=== PATIENT | male | born 1965 | race Caucasian/White ===

== ENCOUNTER → 2018-06-13 | Outpatient (CLI) | payer OTHER ==
[~2018-06-13] VITALS: Ht 172.7 cm; Wt 104.3 kg
[~2018-06-13] MED LIST: ACCUPRIL10 MG PO; ALTACE5 MG PO; AMBIEN 10 MG TA10 MG PO; ASPIR-LOW81 MG PO; BYSTOLIC 5 MG5 M1 PO; GLIPIZIDE XL5 MG PO; GLUCOTROL5 MG PO; HYDROCHLOROTHIA25 M2 PO; INVOKANA300 MG PO; JANUVIA50 MG PO; JARDIANCE25 MG PO; LIPITOR40 MG PO; LIPITOR80 MG PO; METFORMIN HCL500 MG PO; PLAVIX 75 MG TA75 M1 PO; VITAMIN D35000 UNIT PO; VITAMIN D50000 UNIT PO; VITAMIN E400 UNI6 PO; XANAX 0.5 MG0.5 MG PO; ZETIA10 MG PO
--- NOTE | ~2018-06-13 | P ---
[facility] [place] [address] PROCEDURE REPORT Name: LEESA RIOS [id number] Admission: 06/13/18 ������������������ Attend Phys: Yoshi Banda MD Discharge: ������������������ Date of : 61 Report #: [id number] THIS REPORT FOR: //name// CC: Yoshi Victoria BRIEF HISTORY: The patient is a 53-year-old male with a history of 3 colon polyps 5 years ago for a surveillance colonoscopy. PREOPERATIVE DIAGNOSIS: History of colon polyps. POSTOPERATIVE DIAGNOSIS: Colon polyp. MEDICATIONS: Deep sedation with propofol per Anesthesia. SPECIMEN: Proximal ascending colon polyp. ESTIMATED BLOOD LOSS: 3 mL. PROCEDURE: Colonoscopy to cecum and terminal ileum with biopsy. FINDINGS: Prior to propofol sedation, procedure of colonoscopy discussed with the patient as well as potential risks and its complications. He indicates he understands and desires to proceed. DESCRIPTION OF PROCEDURE: With the patient in left lateral decubitus position, digital examination was completed, which revealed no abnormalities. Subsequently, the Olympus video colonoscope was introduced in the rectum, advanced under direct vision to the cecum. Done with minimal difficulty. The cecum was identified by the ileocecal valve and the appendiceal orifice. I was able to visualize the distal segment of terminal ileum, which was inspected and noted to be unremarkable. At that point, the scope was slowly withdrawn and careful circumferential views obtained including retroflexion of the scope in the ascending colon. Upon slow withdrawal of the scope, the prep was good. The mucosa was within normal limits, normal vascular pattern, normal light reflex. As we withdrew the scope, he was noted to have a diminutive polyp in the proximal ascending colon which was removed with cold biopsy forceps. Scope was further withdrawn and no additional neoplastic lesions were seen. The mucosa of the remainder of the colon was within normal limits. The scope was withdrawn in the rectum. Upon retroflexion, no abnormalities were seen. Scope was withdrawn. The patient tolerated the procedure well. CONDITION OF THE PATIENT UPON DISCHARGE: Following procedure, the patient drowsy, aroused, conversant and will be discharged home when fully ambulatory. INSTRUCTIONS TO THE PATIENT AND FAMILY AT THE TIME OF DISCHARGE: We will follow [address] [address] PROCEDURE REPORT Name: LEESA RIOS [facility] [id number] Admission: 06/13/18 ������������������ Attend Phys: Yoshi Banda MD Discharge: ������������������ Date of : 61 Report #: [id number] up on the pathology of the polyp. If it is an adenoma, he should return in 5 years for followup. If it is hyperplastic, 10 years would be indicated. Last colonoscopy was 5 years ago. Withdrawal time to the cecum was 13 minutes and 52 seconds. ��������������������������������������������� ���������������������������������������� By: ��������������������������������������������� 0913 2123 Yoshi Banda MD /nt
--- NOTE | 2018-06-17 12:06 | PATH ---
[facility] [address] [place] [address] PATHOLOGY RPT PROCEDURE Name: PAULO MEDEROS ARIELLA Room #: REG CLI M.R.#: [id number] ������������������ Admission: 06/13/18 ������������������ Date of : 61 Discharge: Report #: [id number] Path Case #: [id number] [facility] Accession Number: [id number] . 01 Material submitted: . POLYP AT PROXIMAL ASCENDING COLON . 01 Clinical history: . Pre-OP DX: Hx polyps, hemorrhoids Post-OP DX: Colon polyp . 02 Diagnosis: Polyp, at ascending colon, endoscopic biopsy: - Tubular adenoma. - Negative for high-grade dysplasia. (IUV:pit 06/14/2018) QTP/06/14/2018 . 02 Electronically signed: . Mckenzie Bustos MD, Pathologist NPI- [id number] . 01 Gross description: . Received in formalin labeled "Paulo Mederos, polyp at proximal ascending colon," are 2 segments of klein soft tissue measuring 0.7 x 0.3 x 0.2 cm in aggregate dimensions and ranging from 0.3 to 0.4 cm in maximum dimension. The specimen is submitted entirely in cassette A1. (TSD; 06/13/2018) TOB/TOB . 02 Pathologist provided ICD-10: D12.2 . 02 CPT . 761456 Specimen Comment: A courtesy copy of this report has been sent to Specimen Comment: [phone], . Specimen Comment: Report sent to / DR ROBERTSON Specimen Comment: A duplicate report has been generated due to demographic updates. Performed at: 01 [place] [id number] [id number] MD Edgar Mazariegos MD Phone: [phone] Performed at: [address] [id number] [address] [address] PATHOLOGY RPT PROCEDURE Name: PAULO MEDEROS Room #: REG JASSI Chase#: [id number] ������������������ Admission: 06/13/18 ������������������ Date of : 61 Discharge: Report #: [id number] Path Case #: [id number] MD Mckenzie Bustos MD Phone: [phone]
== END | disposition home or self-care (01) ==
LOC: GI 06:14
DX: Z12.11 Encounter for screening for malignant neoplasm of colon (principal); Z86.010 Personal history of colon polyps; D12.2 Benign neoplasm of ascending colon; I10 Essential (primary) hypertension; E11.9 Type 2 diabetes mellitus without complications; E78.5 Hyperlipidemia, unspecified; M19.90 Unspecified osteoarthritis, unspecified site; Z95.5 Presence of coronary angioplasty implant and graft; Z98.890 Other specified postprocedural states; Z79.899 Other long term (current) drug therapy; Z87.891 Personal history of nicotine dependence; Z79.82 Long term (current) use of aspirin
CPT/HCPCS: 62110; 62900

== ENCOUNTER → 2018-09-16 | Outpatient (CLI) | payer OTHER ==
[~2018-09-16] VITALS: Ht 172.7 cm; Wt 104.3 kg
[~2018-09-16] MED LIST changes: +ALTACE10 MG PO; +AMBIEN 5 MG TABL5 M1 PO; +BYSTOLIC10 MG PO; +CRESTOR40 MG PO; +GLUCOPHAGE1000 MG PO
[2018-09-16 07:22] LABS: HEMOGLOBIN 13.1 gm/dL (14.0-18.0); MCH 31.1 pg (26.0-34.0); MCHC 32.8 g/dL (28.0-37.0); MCV 94.7 fL (80.0-100.0); RBC 4.23 mil/uL (4.50-6.00); RDW 13.1 % (10.5-14.5); WBC 4.6 thou/uL (4.0-11.0)
[2018-09-16 07:27] LABS: CALCIUM 9.3 mg/dL (8.5-10.1); CREATININE 1.2 mg/dL (0.7-1.3); POTASSIUM 5.1 mmol/L (3.5-5.1)
[2018-09-16 07:36] VITALS: BP 162/100
--- NOTE | 2018-09-16 17:18 | CATHLAB ---
[facility] [address] [place] [address] INVASIVE PROCEDURE REPORT Name: LEESA RIOS Room #: REG Salvatore#: [id number] ������������� Admission: 09/16/18 ������������� Attend Phys: Tristan Morales, Discharge: ��� ������������� ��� Date of : 61 Date of Service: 09/16/18 1717 �� Report #: [id number] �������� ��������������������������������������������[id number] THIS REPORT FOR: //name// APPROVED REPORT Study performed: 09/16/2018 07:24:01 Patient Details Patient Status: Out-Patient Room #: The patient is a 53 year-old male Event Personnel Tristan Morales Information Assurance Engineer, Praveen Suresh RN RN, Kristina Pagan RTR, Jamin Byers Roberta Monitor, Nusrat Collins RN interactive developer Performed Art Access - R femoral artery* Left Heart Cath w/or w/o Coronaries [id number] [facility] Abdominal Aortography 990439 39404 Initial Mod Sed Same Phys/QHP Gr5y 682775 45732 Mod Sed Same Phys/QHP Ea 619843 Hemostasis w/ Mynx Indication Chest pain Procedure Narrative The Right Groin^ was infiltrated with subcutaneous anesthesia. A PINNACLE 6FR Sheath #[id number] sheath was inserted into the RFA^. Coronary angiography was performed using coronary diagnostic catheters. The right coronary system was accessed and visualized with a JR4 catheter. The left coronary system was accessed and visualized with a JL4 catheter. The left ventricle was accessed and visualized with a ST.PIG catheter. Left ventricular/Aortic Valve gradient assessed . Left ventriculogram was performed in 30 degree projection. An aortogram of the abdominal aorta was performed. Closure device was deployed with a Fr 6F/7F MYNX CLOSURE DEVICE. There was no hematoma. Intraoperative Conscious Sedation Sedation start time: 846 Case end Time: 919 Fentanyl 50 mcg Versed 1 mg Fluoro Time: 1.60 minutes Dose: DAP 5011.70 cGycm2 548 mGy [facility] [address] [place] [address] INVASIVE PROCEDURE REPORT Name: LEESA RIOS Room #: [id number] ������������� Admission: 09/16/18 ������������� Attend Phys: Tristan Morales, Discharge: ��� ������������� ��� Date of : 61 Date of Service: 09/16/18 1717 �� Report #: [id number] �������� ��������������������������������������������[id number] Contrast Type and Amount: Omnipaque 120 ml Hemodynamics The aortic pressure is 164/86 mmHg with a mean of 117 mmHg. The left ventricular pressure is 154/13 mmHg with a mean of mmHg. The left ventricular end diastolic pressure is 35 mmHg. Conclusion #1 normal left ventricular size and subtle inferior basilar hypokinesis EF is normal 55-60% #2 abdominal aortogram revealing no evidence of aneurysm widely patent renal and iliac system. #3 the left main has a at least a 70% distal eccentric lesion giving rise to the LAD and circumflex which also collaterally filling until the RCA PDA system which is occluded #4 the LAD is moderately calcified proximally with eccentric disease 30 and 40% well preserved distal half of this vessel was wraps the apex. #5 circumflex OM is nondominant but moderate distribution no occlusive disease is noted. #6 the dominant right is occluded proximally. It is well filled from left system the PDA and DIONE. 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 Recommendations plan: There has been progression of this distal left main lesion. Patient is minimally symptomatic but abnormal stress testing. Complete revascularization preferably with arterial grafts would be recommended and could be performed with revascularization by bypass. Dr. Roca to evaluate for this. Continue home medications. No heavy exertional activity until we proceed on with revascularization. ��������������������������������������������� <ELECTRONICALLY SIGNED> ���������������������������������������� By: Tristan Morales MD, FACC ��������������������������������������������� 09/16/181716 16 16 Tristan Morales MD, FACC /INF
--- NOTE | 2018-09-17 07:29 | EKG ---
[place] [address] [email or web address] [address] ELECTROCARDIOGRAM REPORT Name: LEESA RIOS Room #: REG CLI [facility]#: [id number] ������������������ Admission: 09/16/18 ������������������ Attend Phys: Tristan Morales MD, Discharge: ������������������ Date of : 61 Report #: [id number] ����������������������������������������������������������������� [id number] THIS REPORT FOR: //name// [facility] Test Date: 2018-09-16 Test Time: 07:20:44 Pat Name: LEESA RIOS Department: Room: Gender: M Senior Product Consultant: Ti SUN : 1965 Requested By: Tristan Morales Order Number: [id number] MD: Javier Dennison Measurements Intervals [place] Rate: 69 P: 63 AL: 199 QRS: 28 QRSD: 100 T: -20 QT: 395 QTc: 423 Interpretive Statements Sinus rhythm Multiform ventricular premature complexes Nonspecific T abnormalities, inferior leads Compared to ECG 12/20/2015 07:10:07 No significant change was found Electronically Signed On 09-17-2018 7:29:24 CDT by Javier Dennison [email or web address] ��������������������������������������������� <ELECTRONICALLY SIGNED> ���������������������������������������� By: Javier Dennison MD, [facility] ��������������������������������������������� 09/17/18 0729 9 9 Javier Dennison MD, [facility] /EPI
== END | disposition home or self-care (01) ==
LOC: CATH 06:46
PROVIDERS: Internal Medicine Cardiovascular Disease
DX: I25.10 Atherosclerotic heart disease of native coronary artery without angina pectoris (principal); I10 Essential (primary) hypertension; E11.9 Type 2 diabetes mellitus without complications; E78.5 Hyperlipidemia, unspecified; K21.9 Gastro-esophageal reflux disease without esophagitis; M19.90 Unspecified osteoarthritis, unspecified site; I42.9 Cardiomyopathy, unspecified; Z98.890 Other specified postprocedural states; Z79.899 Other long term (current) drug therapy; Z87.891 Personal history of nicotine dependence; Z82.49 Family history of ischemic heart disease and other diseases of the circulatory system; Z79.82 Long term (current) use of aspirin

== ENCOUNTER → 2018-09-19 | Outpatient (CLI) | payer OTHER | LOC: ULTRA 09:31 | DX: Z01.810 Encounter for preprocedural cardiovascular examination (principal); I25.10 Atherosclerotic heart disease of native coronary artery without angina pectoris ==

== ENCOUNTER 2018-09-26 06:27 | Inpatient (IN) | payer OTHER ==
[2018-09-19 10:39] LABS: URINE BILIRUBIN NEGATIVE (Negative); URINE BLOOD TRACE (Negative); URINE CLARITY CLEAR; URINE COLOR YELLOW; URINE GLUCOSE-RANDOM* 3+ (Negative); URINE KETONES NEGATIVE (Negative); URINE LEUKOCYTES-REFLEX NEGATIVE (Negative); URINE NITRITE-REFLEX NEGATIVE (Negative); URINE PROTEIN (DIPSTICK) 2+ (Negative); URINE UROBILINOGEN 0.2 E.U./dl (0.2-1.0)
[2018-09-19 10:40] LABS: ABSOLUTE NEUTROPHILS 2.7 thou/uL (1.4-8.2); BASOPHILS 0.7 % (0.0-2.0); EOSINOPHILS 3.9 % (0.0-3.0); HEMATOCRIT 39.6 % (42.0-52.0); HEMOGLOBIN 13.4 gm/dL (14.0-18.0); LYMPHOCYTES 21.8 % (24.0-44.0); MCHC 33.9 g/dL (28.0-37.0); MCV 94.3 fL (80.0-100.0); MONOCYTES 9.6 % (1.0-8.0); PLATELET COUNT 179 thou/uL (150-400); RDW 13.1 % (10.5-14.5); WBC 4.2 thou/uL (4.0-11.0)
[2018-09-19 10:52] LABS: BACTERIA-REFLEX 1-9 Few /HPF (None Seen); CASTS None Seen /LPF (None Seen); CRYSTALS None Seen /LPF (None Seen); SQUAMOUS 0-3 Few /LPF (0-3); URINE RBC 0-2 Rare /HPF (0-2); URINE WBC-REFLEX 0-5 Rare /HPF (0-5)
[2018-09-19 10:53] LABS: PROTIME 9.9 Seconds (9.3-11.4)
[2018-09-19 10:55] LABS: ALBUMIN 3.6 g/dL (3.4-5.0); CALCIUM 9.1 mg/dL (8.5-10.1); CREATININE 1.1 mg/dL (0.7-1.3); POTASSIUM 4.4 mmol/L (3.5-5.1); TOTAL BILIRUBIN 0.7 mg/dL (<0.1-1.0); TOTAL PROTEIN 7.8 g/dL (6.4-8.2)
[2018-09-20 09:10] LABS: GLYCOHEMOGLOBIN (HGB A1C) 6.7 % (4.8-5.6)
[~2018-09-26] VITALS: Ht 172.7 cm; Wt 103.9 kg
--- NOTE | ~2018-09-26 | HC ---
[facility] [place] [address] CONSULTATION Name: LEESA RIOS Room #: 242-P ADM IN M.R.#: [id number] Admission: 10/10/18 ������������������ Attend Phys: Yoshi Roca MD Discharge: ������������������ Date of : 61 Report #: [id number] THIS REPORT FOR: //name// CC: Yoshi Victoria HISTORY OF PRESENT ILLNESS: The patient is a 53-year-old male known to myself. He was admitted today for coronary artery bypass surgery. Cardiac catheterization a few weeks ago revealed significant left main and proximal left-sided disease with an occluded right, which were well collateralized. EF at the lower limits of normal. Admitted today for bypass surgery. History of hypertension, diabetes, hypercholesterolemia, stable anginal type symptoms. Best served with revascularization by bypass. Underwent successful bypass with a EPSTEIN to an LAD and SVG diagonal, OM, and an SVG to PDA. He is extubated and arousable. Hemodynamically stable with a trivial amount of Levophed. This will be weaned off. He is oxygenating well. Urine output is decent. HOME MEDICATIONS: Aspirin, Bystolic 10, Plavix which was held, CoQ10, Jardiance 25, Zetia 10, glipizide 5, metformin 1000, Altace 10, and rosuvastatin 40. PAST MEDICAL HISTORY: Positive for hypertension, hypercholesterolemia, coronary artery disease, previous coronary stent and occluded right coronary, alcohol use, prior tobacco user. SOCIAL HISTORY: He is . 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 Moderate caffeine and alcohol on a daily basis. No current tobacco. FAMILY HISTORY: Negative for premature coronary artery disease. REVIEW OF SYSTEMS: Essentially negative except for stated above and some occasional nocturia. PHYSICAL EXAMINATION: GENERAL: He is arousable, he actually is postop. VITAL SIGNS: Pulse is 70s, blood pressure 126/60s. PA pressure was 26/12. HEENT: Eyes reveal xanthelasmas. Pharynx is clear. Face shield is in place. NECK: Shows preserved upstrokes. LUNGS: Clear anteriorly. CARDIOVASCULAR: Distant heart tones, S1, S2. No murmur, rub, or gallop. ABDOMEN: Soft. No HSM or abdominal bruit. EXTREMITIES: No edema. The vein harvesting is wrapped and bandaged. The feet are warm. NEUROLOGIC: Intact. MUSCULOSKELETAL: Mild generalized arthritic changes. ASSESSMENT: 1. Coronary artery disease, status post coronary artery bypass graft, 4-vessel [facility] [address] [place] [address] CONSULTATION Name: LEESA RIOS Room #: 242-P [facility] IN ..#: [id number] Admission: 10/10/18 ������������������ Attend Phys: Yoshi Roca MD Discharge: ������������������ Date of : 61 Report #: [id number] as described above. 2. Hypertension. 3. Hypercholesterolemia. 4. Diabetes. 5. History of ETOH. RECOMMENDATIONS AND PLAN: He is progressing well postop. We will continue to follow. Weaning off the trivial Levophed. Insulin drip. Thank you for asking me to assist in the care of this patient. I have discussed the above with Dr. Benavides, who was the surgeon in record. ��������������������������������������������� ���������������������������������������� By: ��������������������������������������������� 00 0247 Tristan Morales MD, FACC /nt
--- NOTE | ~2018-09-26 | O ---
[facility] [place] [place] [address] OPERATIVE REPORT Name: LEESA RIOS Room #: 242-P ADM IN M.R.#: [id number] Admission: 10/10/18 ������������������ Attend Phys: Yoshi Roca MD Discharge: ������������������ Date of : 61 Report #: [id number] THIS REPORT FOR: //name// CC: Yoshi Victoria DATE OF SERVICE: 10/10/2018 PREOPERATIVE DIAGNOSIS: Coronary artery disease. POSTOPERATIVE DIAGNOSIS: Coronary artery disease. OPERATION: Coronary artery bypass x 4 including left internal mammary artery to left anterior descending artery, saphenous vein to marginal and diagonal and saphenous vein to posterior descending artery. SURGEON: Yoshi Roca MD TEXTILE SCREEN MAKER: Victoriano Dickson. ANESTHESIA: General. INDICATIONS: The patient is a 53-year-old seen for Dr. Morales. The patient presents with a very positive stress test and history of coronary artery disease with previous occluded right coronary artery. Catheterization demonstrates 70% left main stenosis and total occlusion of the right coronary artery. Left ventricular function is at the lower limits of normal. FINDINGS AND TECHNIQUE: After general anesthesia was established, saphenous vein was harvested using an endoscopic approach and prepared for use as a conduit. Exposure was obtained through median sternotomy. Left internal mammary artery was harvested. Pericardial well was made. Cannulation sutures were placed. Heparin was given. Aorta was cannulated. Right atrium was cannulated. Cardioplegia needle was positioned in the aortic root. Retrograde cardioplegic catheter was placed in coronary sinus. Cardiopulmonary bypass was established. The aorta was cross clamped. Antegrade and retrograde cardioplegia were given. Ice was poured into the pericardial well. The heart was stopped. During electromechanical arrest, the distal anastomoses were performed and end-to-side anastomosis was made between vein and the posterior descending artery. This was a 1.4 mm vessel. Cold cardioplegia was given. Separate segment of vein was sewn in end-to-side fashion to the large marginal artery. [facility] [place] [place] [address] [place] [address] OPERATIVE REPORT Name: LEESA RIOS [place] Room #: 242-P [facility] IN .R.#: [id number] Admission: 10/10/18 ������������������ Attend Phys: Yoshi Roca MD Discharge: ������������������ Date of : 61 Report #: [id number] This was a 2-mm vessel. Cold cardioplegia was given. Same segment of vein was sewn in lgol-oo-dhsb fashion to the first diagonal artery. This was a 1.5 mm vessel. Cold cardioplegia was given. Left internal mammary artery was sewn in end-to-side fashion to the left anterior descending artery. This was a 1.6 mm vessel. Cold cardioplegia was given. It should be mentioned that all the coronary arteries were diffusely diseased even in areas where they appeared angiographically normal, they were thick and atherosclerotic. Cold cardioplegia was given. Two proximal anastomoses were performed. When these were complete, warm retrograde cardioplegia was given, followed by warm continuous blood to the coronary sinus. When this infusion was complete, the crossclamp was removed, de-airing maneuvers were performed. The anastomoses were inspected and found to be satisfactory. As the patient warmed, nice cardiac activity resumed, chest tubes and pacing wires were placed, a marker was placed around the proximal anastomoses. When the patient was warmed, he was weaned from cardiopulmonary bypass. Venous cannula was removed. Protamine was given, the aortic cannula was removed. Flows were measured in the bypass grafts. When hemostasis was satisfactory, chest was closed in the usual fashion. The patient was taken to the Intensive Care Unit in good condition, having tolerated the procedure well. All counts reported as correct. ��������������������������������������������� ���������������������������������������� By: ��������������������������������������������� 1020 1051 Yoshi Roca MD /nt
[2018-10-10] VITALS (8 sets, daily range): BP systolic 75–168; BP diastolic 45–88
[2018-10-10 13:14] LABS: POC BE -4 mmol/L (-2.0 to +3.0); POC CA IONIZED 5.2 mg/dL (4.5-5.3); POC GLUCOSE 165 mg/dL (70-99); POC HCO3 22.5 mmol/L (22.0-26.0); POC HEMOGLOBIN 10.9 g/dL (14.0-18.0); POC POTASSIUM 4.9 mmol/L (3.5-5.1); POC SODIUM 137 mmol/L (136-145); POC pCO2 44.5 mmHg (35.0-45.0); POC pH 7.312 (7.360-7.450)
[2018-10-10 13:14] LABS: POC BE -2 mmol/L (-2.0 to +3.0); POC CA IONIZED 4.4 mg/dL (4.5-5.3); POC GLUCOSE 165 mg/dL (70-99); POC HEMOGLOBIN 10.9 g/dL (14.0-18.0); POC SODIUM 138 mmol/L (136-145); POC pCO2 40.8 mmHg (35.0-45.0); POC pH 7.359 (7.360-7.450)
[2018-10-10 13:14] LABS: POC BE -2 mmol/L (-2.0 to +3.0); POC GLUCOSE 149 mg/dL (70-99); POC HCO3 23.6 mmol/L (22.0-26.0); POC HEMOGLOBIN 9.9 g/dL (14.0-18.0); POC POTASSIUM 4.1 mmol/L (3.5-5.1); POC SODIUM 140 mmol/L (136-145); POC pCO2 41.2 mmHg (35.0-45.0); POC pH 7.365 (7.360-7.450)
[2018-10-10 13:24] LABS: MCH 31.6 pg (26.0-34.0); MCHC 34.4 g/dL (28.0-37.0); MCV 91.9 fL (80.0-100.0); RBC 3.03 mil/uL (4.50-6.00); RDW 12.3 % (10.5-14.5)
[2018-10-10 13:27] LABS: HEMATOCRIT 27.8 % (42.0-52.0); HEMOGLOBIN 9.6 gm/dL (14.0-18.0)
[2018-10-10 13:38] LABS: INR 1.2
[2018-10-10 13:39] LABS: PROTIME 12.4 Seconds (9.3-11.4)
[2018-10-10 13:40] LABS: APTT 26.8 Seconds (24.5-32.8); FIBRINOGEN 277.9 mg/dL (210-360)
[2018-10-10 14:04] LABS: POC BE -4 mmol/L (-2.0 to +3.0); POC CA IONIZED 4.7 mg/dL (4.5-5.3); POC GLUCOSE 164 mg/dL (70-99); POC HCO3 21.6 mmol/L (22.0-26.0); POC HEMOGLOBIN 10.2 g/dL (14.0-18.0); POC SODIUM 137 mmol/L (136-145); POC pCO2 37.9 mmHg (35.0-45.0); POC pH 7.365 (7.360-7.450)
[2018-10-10 14:04] LABS: POC BE -4 mmol/L (-2.0 to +3.0); POC CA IONIZED 4.9 mg/dL (4.5-5.3); POC GLUCOSE 117 mg/dL (70-99); POC HCO3 22.2 mmol/L (22.0-26.0); POC HEMOGLOBIN 10.2 g/dL (14.0-18.0); POC POTASSIUM 4.3 mmol/L (3.5-5.1); POC SODIUM 140 mmol/L (136-145); POC pCO2 41.9 mmHg (35.0-45.0); POC pH 7.333 (7.360-7.450)
[2018-10-10 14:04] LABS: POC BE -7 mmol/L (-2.0 to +3.0); POC CA IONIZED 4.6 mg/dL (4.5-5.3); POC GLUCOSE 165 mg/dL (70-99); POC HCO3 20.3 mmol/L (22.0-26.0); POC HEMOGLOBIN 10.2 g/dL (14.0-18.0); POC POTASSIUM 4.9 mmol/L (3.5-5.1); POC SODIUM 135 mmol/L (136-145); POC pCO2 44.9 mmHg (35.0-45.0); POC pH 7.264 (7.360-7.450)
[2018-10-10 14:04] LABS: POC BE -4 mmol/L (-2.0 to +3.0); POC CA IONIZED 4.6 mg/dL (4.5-5.3); POC GLUCOSE 162 mg/dL (70-99); POC HCO3 23.5 mmol/L (22.0-26.0); POC HEMOGLOBIN 9.9 g/dL (14.0-18.0); POC POTASSIUM 4.8 mmol/L (3.5-5.1); POC SODIUM 136 mmol/L (136-145); POC pCO2 54.3 mmHg (35.0-45.0); POC pH 7.245 (7.360-7.450)
[2018-10-10 14:04] LABS: POC BE -4 mmol/L (-2.0 to +3.0); POC CA IONIZED 4.7 mg/dL (4.5-5.3); POC GLUCOSE 166 mg/dL (70-99); POC HCO3 20.8 mmol/L (22.0-26.0); POC HEMOGLOBIN 11.9 g/dL (14.0-18.0); POC SODIUM 137 mmol/L (136-145); POC pCO2 35.4 mmHg (35.0-45.0); POC pH 7.378 (7.360-7.450)
[2018-10-10 14:04] LABS: POC BE -1 mmol/L (-2.0 to +3.0); POC CA IONIZED 4.4 mg/dL (4.5-5.3); POC GLUCOSE 156 mg/dL (70-99); POC HCO3 23.9 mmol/L (22.0-26.0); POC HEMOGLOBIN 8.8 g/dL (14.0-18.0); POC POTASSIUM 4.9 mmol/L (3.5-5.1); POC SODIUM 137 mmol/L (136-145); POC pCO2 41.6 mmHg (35.0-45.0); POC pH 7.367 (7.360-7.450)
[2018-10-10 14:24] LABS: BE(vivo) -7.3 mmol/L (-2 to +3); HCO3 18.3 mmol/L (22.0-26.0); PCO2 37.6 mmHg (35.0-45.0); PO2 104.1 mmHg (80.0-100.0); sO2 97.3 % (92.0-98.0)
[2018-10-10 14:25] LABS: pH 7.306 (7.360-7.450)
[2018-10-10 14:43] LABS: HEMATOCRIT 29.6 % (42.0-52.0); HEMOGLOBIN 10.1 gm/dL (14.0-18.0); MCH 31.4 pg (26.0-34.0); MCHC 34.1 g/dL (28.0-37.0); MCV 92.1 fL (80.0-100.0); RBC 3.21 mil/uL (4.50-6.00); RDW 12.6 % (10.5-14.5); WBC 9.1 thou/uL (4.0-11.0)
[2018-10-10 14:55] LABS: CALCIUM 8.7 mg/dL (8.5-10.1); CREATININE 1.5 mg/dL (0.7-1.3); POTASSIUM 4.7 mmol/L (3.5-5.1)
[2018-10-10 14:58] LABS: APTT 29.6 Seconds (24.5-32.8); INR 1.1; PROTIME 11.4 Seconds (9.3-11.4)
--- NOTE | 2018-10-10 15:49 | NUR ---
1415-ARRIVED FROM O.R W OPEN HEART CREW, IN ATTENDANCE.--VW 1550-VERY LABILE HEMODYNAMICS INITIALLY. ON & OFF LEVO & JULI. PT AWAKE W/IN FEW MINUTES OF ARRIVAL.NOT FOLLOWING COMMANDS.RESTLESS. WAITING ON PRECEDEX. LOW DOSE PROPOFOL AT THIS TIME. UPDATED EARLIER BY ROBERTITALIAN TEACHER. STATES YAN NOT WANTING TO SEE PT LIKE THIS BUT AVAILABLE BY PHONE.--VW
--- NOTE | 2018-10-10 16:46 | NUR ---
WAITING ON PRECEDEX. MED W 2 HYDROCODONE DOWN OGT,CLAMPED. WAITING ON R.T. FOR CPAP TRIAL. PT GLARING AT TIMES,RESTLESS ON PROPOFOL 20MCG/KG/MIN. LIFTING HEAD OFF PILLOW. LEGS CONSTANT MOTION.--VW
[2018-10-10 17:07] LABS: BE(vivo) -9.3 mmol/L (-2 to +3); HCO3 15.7 mmol/L (22.0-26.0); PO2 145.5 mmHg (80.0-100.0); sO2 98.7 % (92.0-98.0)
[2018-10-10 17:08] LABS: pH 7.308 (7.360-7.450)
[2018-10-10 17:47] LABS: BE(vivo) -9.8 mmol/L (-2 to +3); HCO3 16.2 mmol/L (22.0-26.0); PCO2 36.1 mmHg (35.0-45.0); PO2 124.4 mmHg (80.0-100.0); pH 7.271 (7.360-7.450); sO2 98.1 % (92.0-98.0)
--- NOTE | 2018-10-10 19:45 | NUR ---
RESTING MORE COMF W PRECEDEX ON BOARD. PT EXTUBATED AFTER UPDATED. PT APPROP.VOICE RASPY. CARE TURNED OVER TO ONCOMING RN. IN TO SEE.--VW
[2018-10-10 19:47] LABS: HCO3 18.2 mmol/L (22.0-26.0); PCO2 35.5 mmHg (35.0-45.0); PO2 162.5 mmHg (80.0-100.0); pH 7.328 (7.360-7.450)
--- NOTE | 2018-10-10 20:22 | NUR ---
PT EXTUBATED at 1855; post ABG shows pH 7.328 (critical low), which is improved from last gas. ABG called to Dr. Roca, no new orders. Pt initially on 50% humidified face shield but O2 titrated down and face shield now at 35%. Pt alert, oriented, pain level at 6/10 which pt states "isn't bad". Mediastinal tubes x2 and left plural x1 patent to -20 cmH2O, no air leak or crepitus. Urine output > 30 cc/hr; VS stable with Levophed at 0.04 mcg/min.
[2018-10-11] VITALS (8 sets, daily range): BP systolic 80–133; BP diastolic 51–89
[2018-10-11 05:41] LABS: HEMATOCRIT 25.7 % (42.0-52.0); HEMOGLOBIN 8.9 gm/dL (14.0-18.0); MCH 31.9 pg (26.0-34.0); MCHC 34.6 g/dL (28.0-37.0); MCV 92.1 fL (80.0-100.0); RBC 2.79 mil/uL (4.50-6.00); RDW 12.2 % (10.5-14.5); WBC 6.6 thou/uL (4.0-11.0)
[2018-10-11 05:56] LABS: CALCIUM 8.1 mg/dL (8.5-10.1); CREATININE 1.2 mg/dL (0.7-1.3); MAGNESIUM 2.8 mg/dL (1.8-2.4); POTASSIUM 4.1 mmol/L (3.5-5.1)
--- NOTE | 2018-10-11 07:29 | EKG ---
[address] [employer] [place] [address] ELECTROCARDIOGRAM REPORT Name: LEESA RIOS Room #: 242-P ADM IN M.R.#: [id number] ������������������ Admission: 10/10/18 ������������������ Attend Phys: Yoshi Roca MD Discharge: ������������������ Date of : 61 Report #: [id number] ����������������������������������������������������������������� [id number] THIS REPORT FOR: //name// [facility] Test Date: 2018-10-10 Test Time: 17:43:43 Pat Name: LEESA RIOS Department: Room: 242 Gender: M Linux Network Administrator: Sanya GARCIA : 1965 Requested By: Jose Dickson Order Number: [id number] MD: Javier Dennison Measurements Intervals [place] Rate: 99 P: 43 OR: 216 QRS: 31 QRSD: 102 T: -61 QT: 319 QTc: 410 Interpretive Statements Sinus rhythm Frequent premature ventricular complexes Prolonged OR interval Nonspecific T abnormalities Compared to ECG 09/16/2018 07:20:44 First degree AV block now present T wave abnormality is now present Electronically Signed On 10-11-2018 7:29:13 CDT by Javier Dennison [email or web address] ��������������������������������������������� <ELECTRONICALLY SIGNED> ���������������������������������������� By: Javier Dennison MD, [facility] ��������������������������������������������� 10/11/18 0729 1743 1743 Javier Dennison MD, [facility] /EPI
--- NOTE | 2018-10-11 07:34 | EKG ---
[place] [address] [facility] [email or web address] [address] ELECTROCARDIOGRAM REPORT Name: RIOSLEESA Room #: 242-P ADM IN M.R.#: [id number] ������������������ Admission: 10/10/18 ������������������ Attend Phys: Yoshi Roca MD Discharge: ������������������ Date of : 61 Report #: [id number] ����������������������������������������������������������������� [id number] THIS REPORT FOR: //name// [facility] Test Date: 2018-10-11 Test Time: 07:11:11 Pat Name: LEESA RIOS Department: Room: 242 P Gender: M Event Sales Representative: VINITA : 1965 Requested By: Jose Dickson Order Number: [id number] MD: Javier Dennison Measurements Intervals [place] Rate: 72 P: 34 CT: 190 QRS: 13 QRSD: 98 T: -31 QT: 437 QTc: 479 Interpretive Statements Sinus rhythm Ventricular bigeminy right ventricular conduction delay Nonspecific ST and T wave abnormality Compared to ECG 09/16/2018 07:20:44 Nonspecific change in the ST and T-wave segments Early R-wave progression is now present Electronically Signed On 10-11-2018 7:34:47 CDT by Javier Dennison [email or web address] ��������������������������������������������� <ELECTRONICALLY SIGNED> ���������������������������������������� By: Javier Dennison MD, [facility] ��������������������������������������������� 10/11/18 0734 0711 0 Javier Dennison MD, [facility] /EPI
--- NOTE | 2018-10-11 07:47 | NUR ---
Nutrition: Consult received, POD [address] will followup when out of ICU and closer to D/C to determine education needs.
--- NOTE | 2018-10-11 08:01 | NUR ---
END OF SHIFT SUMMARY: Pt progressing toward goals. Pain well controlled with Fentanyl 25 mcg IVP x2. Hemodynamics stable, within parameters, with Levophed at 0.03 mcg/kg/min. Blood sugar within parameters with insulin gtt at 2.5 unit/hr. Mediastinal and plural chest tubes remain patent to -20 cmH2O, no air leak or crepitus. Pt's anxiety levels well controlled with Precedex gtt. Urine output more than adequate, 1200 cc out this shift. O2 sat remains > 95% on 2 liters; pt consistently getting at least 500 cc on IS. Tolerating clear liquids well without nausea; will advance to heart healthy, carb control diet this a.m.
--- NOTE | 2018-10-11 17:06 | NUR ---
CM ASSESSMENT: CASE OPENED FOR DC PLANNING. CLINCIAL INFO REVIEWED. PT IS POD #1 CABG X4. 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 LIVES WITH SPOUSE YAN, WHO WORKS AT [employer] IN [place]ACH[place]. INDEPENDENT AND NO DME. LIKELY NO CM NEEDS AT DC. CM AVAILBALE TO ASSIST WITH DC NEEDS NEEDED.
[2018-10-12] VITALS (13 sets, daily range): BP systolic 97–137; BP diastolic 50–79
[2018-10-12 06:03] LABS: HEMOGLOBIN 7.5 gm/dL (14.0-18.0); MCH 31.3 pg (26.0-34.0); MCHC 33.9 g/dL (28.0-37.0); MCV 92.1 fL (80.0-100.0); RBC 2.39 mil/uL (4.50-6.00); RDW 12.3 % (10.5-14.5); WBC 5.4 thou/uL (4.0-11.0)
[2018-10-12 06:05] LABS: CREATININE 1.6 mg/dL (0.7-1.3); POTASSIUM 4.1 mmol/L (3.5-5.1)
--- NOTE | 2018-10-12 07:00 | NUR ---
Pt slept well through the night with stable VS. PRN fentanyl and hydrocodones given for c/o chest "soreness" with desired effects achieved. Chest tube drainage minimal and large amount of urine output for shift. Am lab results noted, continue with POC.
--- NOTE | 2018-10-12 10:50 | EKG ---
[place] [address] [facility] [place] [address] ELECTROCARDIOGRAM REPORT Name: LEESA RIOS [place] Room #: 242-P ADM IN M.R.#: [id number] ������������������ Admission: 10/10/18 ������������������ Attend Phys: Yoshi Roca MD Discharge: ������������������ Date of : 61 Report #: [id number] ����������������������������������������������������������������� [id number] THIS REPORT FOR: //name// [facility] Test Date: 2018-10-11 Test Time: 11:29:43 Pat Name: LEESA RIOS Department: Room: 242 P Gender: M Label Operator: Sybil TENORIO : 1965 Requested By: Jose Dickson Order Number: [id number] MD: Javier Dennison Measurements Intervals [place] Rate: 80 P: 75 IA: 199 QRS: 16 QRSD: 98 T: -44 QT: 393 QTc: 454 Interpretive Statements Sinus rhythm T-wave abnormality, inferior and lateral leads Compared to ECG 10/11/2018 07:11:11 Ventricular premature complex(es) no longer present Electronically Signed On 10-12-2018 10:50:43 CDT by Javier Dennison [email or web address] ��������������������������������������������� <ELECTRONICALLY SIGNED> ���������������������������������������� By: Javier Dennison MD, [facility] ��������������������������������������������� 10/12/18 1050 [id number] Javier Dennison MD, [facility] /EPI
--- NOTE | 2018-10-12 18:29 | NUR ---
PATIENT ALERT AND ORIENTED X4, PAIN CONTROLLED WITH MEDICATION ON 2L NASAL CANNULA. TOLERATING DIET WELL. ELLIS DISCONTINUED, PATIENT VOIDING. DRESSINGS INTACT. UP WITH X1 ASSISTANCE, PATIENT TRANSFERS WITH MINIMAL ASSISTANCE FROM BED TO CHAIR. NO SIGNS OF ACUTE DISTRESS NOTED AT THIS TIME. REPORT GIVEN TO ONCOMING NURSE, PATIENT TRANSFERRED TO CCU.
[2018-10-13 01:19] VITALS: BP 115/67
[2018-10-13 04:20] VITALS: BP 11/62; BP 151/79
--- NOTE | 2018-10-13 04:44 | NUR ---
PT A TRANSFER FROM ICU S/P CABG X 4. ALERT AND ORIENTED. VITALS STABLE WITH A MILD FEVER. C/O STERNAL PAIN, AND LEF HIP PAIN. PRN PAIN MEDS UTILIZED. STERNAL NARENDRA DRESSING C/D/I. NO C/O NAUSEA VOMITING OR DIARRHEA. NO BM X5 DAYS. GIVEN PATIENT MIRALAX. NO SYNCOPAL EPISODE OVER NIGHT AND PATIENT CONTINUES TO WORK TOWARDS GOAL. WILL CONTINUE TO MONITOR.
[2018-10-13 08:00] VITALS: BP 114/62
[2018-10-13 12:05] VITALS: BP 103/50
[2018-10-13 15:57] VITALS: BP 131/80
[2018-10-13 20:08] VITALS: BP 135/65
[2018-10-14 00:10] VITALS: BP 113/71
[2018-10-14 04:48] LABS: HEMATOCRIT 21.8 % (42.0-52.0); HEMOGLOBIN 7.3 gm/dL (14.0-18.0); MCH 31.3 pg (26.0-34.0); MCHC 33.3 g/dL (28.0-37.0); RBC 2.32 mil/uL (4.50-6.00); RDW 12.8 % (10.5-14.5); WBC 5.5 thou/uL (4.0-11.0)
[2018-10-14 04:59] LABS: CALCIUM 8.7 mg/dL (8.5-10.1); CREATININE 1.4 mg/dL (0.7-1.3); POTASSIUM 4.6 mmol/L (3.5-5.1)
[2018-10-14 05:40] VITALS: BP 107/69
--- NOTE | 2018-10-14 07:53 | EKG ---
[place] [address] [facility] [place] [address] ELECTROCARDIOGRAM REPORT Name: LEESA RIOS [place] Room #: 207-P ADM IN M.R.#: [id number] ������������������ Admission: 10/10/18 ������������������ Attend Phys: Yoshi Roca MD Discharge: ������������������ Date of : 61 Report #: [id number] ����������������������������������������������������������������� [id number] THIS REPORT FOR: //name// [facility] Test Date: 2018-10-14 Test Time: 07:27:46 Pat Name: LEESA RIOS Department: Room: 207 P Gender: M Master Chef: VINITA : 1965 Requested By: Jose Dickson Order Number: [id number] MD: Javier Dennison Measurements Intervals [place] Rate: 76 P: 46 NV: 198 QRS: 25 QRSD: 106 T: -70 QT: 398 QTc: 448 Interpretive Statements Sinus rhythm Frequent premature ventricular complexes Nonspecific ST and T wave abnormality Compared to ECG 10/11/2018 11:29:43 Ventricular premature complex(es) now present Electronically Signed On 10-14-2018 7:53:41 CDT by Javier Dennison [email or web address] ��������������������������������������������� <ELECTRONICALLY SIGNED> ���������������������������������������� By: Javier Dennison MD, [facility] ��������������������������������������������� 10/14/18 0753 [id number] 07 Javier Dennison MD, [facility] /EPI
[2018-10-14 11:11] VITALS: BP 112/73
--- NOTE | 2018-10-14 11:47 | NUR ---
Hx of diabetes, BG [phone]. Added carb control to diet order
[2018-10-14 14:30] VITALS: BP 112/73
--- NOTE | 2018-10-14 15:29 | NUR ---
ASSUMED CARE OF PT AT SHIFT CHANGE. ASSESSMENTS CHARTED. MEDS GIVEN PER MAY. PT ALERT AND ORIENTED, VSS, DENIES PAIN. O2 SATS WNL ON ROOM AIR. NO C/O SOB. PT SHOWERED TODAY WITH OT, NARENDRA DRESSING REMOVED AND CHANGED BY THIS NURSE. PT INSTRUCTED TO NOT TAKE DRESSING OFF UNITL NEXT SCHEDULED APPT. C/O CONSTIPATION, PT GIVEN MIRALAX WITH SCHEDULED STOOL SOFTENER, PT ABLE TO HAVE BOWEL MOVEMENT THIS SHIFT. DC ORDERS ACKNOWLEDGED AND IMPLEMENTED, DC PAPERWORK DISCUSSED WITH PT AND SPOUSE, COMMUNICATES UNDERSTANDING. IV REMOVED, TELE DC'D. PT LEFT WITH ALL BELONGINGS AT APPROX 1520.
== END 2018-10-14 15:15 | disposition home or self-care (01) | DRG 236 ==
LOC: PRE → TBA 10-10 06:01 → PRE 10-10 10:31 → ICU 10-10 14:16 → 2N 10-12 18:15 → ENTRNSPT 10-14 15:04 → EDTRNSPTSTS 10-14 15:07 → 2N 10-14 15:15
PROVIDERS: Physician Assistant; ADMIT Surgery Vascular Surgery
PROC: 02100Z9 Bypass Coronary Artery, One Artery from Left Internal Mammary, Open Approach (ICD-10-PCS; principal; 2018-10-10)
PROC: 021209W Bypass Coronary Artery, Three Arteries from Aorta with Autologous Venous Tissue, Open Approach (ICD-10-PCS; 2018-10-10)
PROC: 06BQ4ZZ Excision of Left Saphenous Vein, Percutaneous Endoscopic Approach (ICD-10-PCS; 2018-10-10)
PROC: 5A1221Z Performance of Cardiac Output, Continuous (ICD-10-PCS; 2018-10-10)
DX: I25.10 Atherosclerotic heart disease of native coronary artery without angina pectoris (principal); I10 Essential (primary) hypertension; E11.9 Type 2 diabetes mellitus without complications; E78.00 Pure hypercholesterolemia, unspecified; E78.5 Hyperlipidemia, unspecified; I95.9 Hypotension, unspecified; D64.9 Anemia, unspecified; Z79.899 Other long term (current) drug therapy; Z79.82 Long term (current) use of aspirin; Z79.84 Long term (current) use of oral hypoglycemic drugs; Z95.5 Presence of coronary angioplasty implant and graft
CPT/HCPCS: 10078; 10081; 47000; 47001; 47002; 47297; 48888; 50010; 50249; 50409; 50456; 50498; 50668; 51301; 52131; 52259; 52314; 53327; 53358; 54118; 56455; 56524; 56525; 56526; 56527; 56528; 56531; 56534; 56668; 56760; 56898; 57093; 57116; 57167; 62110; 62950; 65003; 65047; 65090; 65120; 65135

== ENCOUNTER → 2019-08-27 | Outpatient (CLI) | payer OTHER | LOC: LAB 10:38 | DX: I25.10 Atherosclerotic heart disease of native coronary artery without angina pectoris (principal); I10 Essential (primary) hypertension; E11.9 Type 2 diabetes mellitus without complications; I25.83 Coronary atherosclerosis due to lipid rich plaque; E78.00 Pure hypercholesterolemia, unspecified; Z00.00 Encounter for general adult medical examination without abnormal findings ==

== ENCOUNTER → 2020-08-26 | Outpatient (CLI) | payer OTHER | LOC: SJCVCIMAG 07:50 | PROVIDERS: ATTEND Internal Medicine Cardiovascular Disease | DX: I25.10 Atherosclerotic heart disease of native coronary artery without angina pectoris (principal); I49.3 Ventricular premature depolarization; I10 Essential (primary) hypertension; E78.5 Hyperlipidemia, unspecified; Z95.1 Presence of aortocoronary bypass graft ==